=== PATIENT | female | born 1985 | race American Indian/Alaskan Native ===

== ENCOUNTER 2021-10-27 08:35 | Emergency (ER) | payer SELFPAY ==
--- NOTE | 2021-10-27 09:02 | Emergency Department Report ---
ED General Adult HPI - General Stated complaint: ABD PAIN/COUGH PUI?: No Time Seen by Provider: 10/27/21 08:59 Source: patient Mode of arrival: Ambulatory Limitations: No Limitations - History of Present Illness Initial comments: 36 YO COMES TO ER WITH RIGHT SIDE PAIN (INDICATING FLANK) AND R CHEST PAIN WHEN SHE COUGHS. SHE HAS HAD THESE SYMPTOMS FOR OVER A MONTH BUT HAS NOT SEEN HER PCP. NO SOB NO FEVER OR CHILLS NO N/V/D -: month(s) Associated Symptoms: denies other symptoms Treatments Prior to Arrival: none - Related Data Allergies Allergy/AdvReac Type Severity Reaction Status Date / Time No Known Allergies Allergy Unverified 10/27/21 09:01 ED Review of Systems ROS: Stated complaint: ABD PAIN/COUGH Other details as noted in HPI Comment: All other systems reviewed and negative ED Past Medical Hx - Past Medical History Previous Medical History?: Yes Hx Hypertension: Yes Hx Diabetes: Yes Additional medical history: anemia - Surgical History Past Surgical History?: Yes - Family History Family history: no significant - Social History Smoking Status: Never Smoker Substance Use Type: None ED Physical Exam - General Limitations: No Limitations General appearance: alert, in no apparent distress - Head Head exam: Present: atraumatic, normocephalic - Eye Eye exam: Present: normal appearance - ENT ENT exam: Present: mucous membranes moist - Neck Neck exam: Present: normal inspection - Respiratory Respiratory exam: Present: normal lung sounds bilaterally. Absent: respiratory distress - Cardiovascular Cardiovascular Exam: Present: regular rate, normal rhythm. Absent: systolic murmur, diastolic murmur, rubs, gallop - GI/Abdominal GI/Abdominal exam: Present: soft, normal bowel sounds - Extremities Exam Extremities exam: Present: normal inspection - Back Exam Back exam: Present: normal inspection - Neurological Exam Neurological exam: Present: alert, oriented X3 - Psychiatric Psychiatric exam: Present: normal affect, normal mood - Skin Skin exam: Present: warm, dry, intact, normal color. Absent: rash ED Course Vital Signs 10/27/21 09:02 Temperature 98.4 F Pulse Rate 71 Respiratory 18 Rate Blood Pressure 108/52 [Right] O2 Sat by Pulse 100 Oximetry - Reevaluation(s) Reevaluation #1: 10/27/21 09:00 rx lisonopril vit d fe [facility] PCP lmp 10/01 ED Medical Decision Making - Lab Data Result diagrams: 10/27/21 09:14 - Medical Decision Making Vital Signs 10/27/21 09:02 Temperature 98.4 F Pulse Rate 71 Respiratory 18 Rate Blood Pressure 108/52 [Right] O2 Sat by Pulse 100 Oximetry Lab Results 10/27/21 10/27/21 Range/Units 09:14 09:16 WBC 6.6 (4.5-11.0) K/mm3 RBC 4.76 (3.65-5.03) M/mm3 Hgb 10.2 (10.1-14.3) gm/dl Hct 34.0 (30.3-42.9) % MCV 71 L (79-97) fl MCH 22 L (28-32) pg MCHC 30 (30-34) % RDW 21.7 H (13.2-15.2) % Plt Count 246 (140-440) K/mm3 Urine Color Yellow (Yellow) Urine Turbidity Slightly cloudy (Clear) Specific [place] (Man) 1.020 (1.003-1.030) Ur Protein (Man) 1+ (Negative) mg/dL Ur Ketones (Man) Negative (Negative) Urine Bilirubin (Man) Negative (Negative) Urine WBC (Auto) 1.0 (0.0-6.0) /HPF Urine RBC (Auto) < 1.0 (0.0-6.0) /HPF U Epithel Cells (Auto) 7.0 (0-13.0) /HPF Urine RBC (Manual) Trace (Negative) Hyaline Casts 1 /LPF Urine Mucus Few /HPF Urine HCG, Qual Negative (Negative) NA X 3 FOR ROOM AT 1130 - Differential Diagnosis RO UTI/URI Critical care attestation.: If time is entered above; I have spent that time in minutes in the direct care of this critically ill patient, excluding procedure time. ED Disposition Clinical Impression: Side pain Disposition: 07 LEFT AWOL/ELOPED Is pt being admited?: No Does the pt Need Aspirin: No Condition: Stable Time of Disposition: 11:36
[2021-10-27 10:10] LABS: Hemoglobin 10.2 gm/dl (10.1-14.3); Mean Platelet Volume 9.7 fl (6-12); Red Blood Count 4.76 M/mm3 (3.65-5.03); Red Cell Distribution Width 21.7 % (13.2-15.2)
[2021-10-27 10:54] LABS: Hyaline Casts,Urine 1 /LPF; Mucus,Urine FEW /HPF; RBC,Urine < 1.0 /HPF (0.0-6.0)
[2021-10-27 11:14] LABS: Color,Urine Yellow (Yellow)
[2021-10-27 11:16] LABS: HCG Qualitative,Urine Negative (Negative)
--- NOTE | 2021-10-27 12:16 | XRay Report ---
ABDOMEN 4 VIEW(S) INDICATION: Chest pain, cough, unspecified abdominal pain for one month. COMPARISON: None available. FINDINGS: Bowel gas pattern: No significant abnormality. Free air: None seen. Stones: None seen. Chest: No acute findings. Additional Findings: No additional significant findings. IMPRESSION: 1. No acute findings. Signer Name: Ruiz Anderson MD Signed: 10/27/2021 12:11 PM Workstation Name: [id number]
[2021-10-27 13:02] LABS: Alanine Aminotransferase 9 units/L (7-56); Albumin 4.8 g/dL (3.9-5); Blood Urea Nitrogen 8 mg/dL (7-17); Calcium 9.1 mg/dL (8.4-10.2); Hemolysis Index 1
[2021-10-27 13:04] LABS: BUN/Creatinine Ratio 16
[2021-10-27 13:37] VITALS: BP 119/65
== END 2021-10-27 14:32 | disposition home or self-care (01) ==
LOC: ED 08:35
DX: R07.89 Other chest pain (principal); R10.9 Unspecified abdominal pain; I10 Essential (primary) hypertension; E11.9 Type 2 diabetes mellitus without complications; Z79.899 Other long term (current) drug therapy
CPT/HCPCS: 36415; 74022; 80053; 81001; 81025; 83690; 85027; 99283